=== PATIENT | female | born 1995 | race Caucasian/White ===

== ENCOUNTER 2017-06-13 14:06 | Emergency (ER) | payer BC ==
[2017-06-13 14:14] VITALS: RESP 18
[2017-06-13] MEDS ORDERED: HYDROmorphONE/DILAUDID 1 MG/ML INJ IVP ONE (14:53)
[2017-06-13] MEDS ORDERED: ONDANSETRON 4 MG/2 ML VIAL IVP ONE (14:53)
[2017-06-13] MEDS ORDERED: NS 1,000 ML IV ONE (14:53)
[2017-06-13 14:58] LABS: % IMMATURE GRANULYOCYTES 0.2 % (0.0-1.1); ABSOLUTE IMMATURE GRANULOCYTES 0.01 10^3/uL (0.00-0.10); ADD DIFF? NO; ADD MORPH? NO; ADD SCAN? NO; ATYPICAL LYMPHOCYTE FLAG 10 (0-99); FRAGMENT RBC FLAG 0 (0-99); HEMATOCRIT 40.4 % (38.0-47.0); HEMOGLOBIN 13.8 g/dL (12.6-16.3); LEFT SHIFT FLG 0 (0-99); LIPEMIA HEMOLYSIS FLAG 90 (0-99); MEAN CELL HEMOGLOBIN 29.6 pg (27.9-34.1); MEAN CELL HEMOGLOBIN CONCENTR. 34.2 g/dL (32.4-36.7); MEAN CELL VOLUME 86.7 fL (81.5-99.8); MEAN PLATELET VOLUME 10.9 fL (8.7-11.7); PLATELET CLUMPS FLAG 0 (0-99); PLATELET COUNT 285 10^3/uL (150-400); RED BLOOD CELL COUNT 4.66 10^6/uL (4.18-5.33); RED CELL DISTRIBUTION WIDTH 12.6 % (11.5-15.2)
--- NOTE | 2017-06-13 15:02 | EDPHY ---
H & P Smoking Status: Never smoked Time Seen by Provider: 06/13/17 14:17 HPI/ROS: CHIEF COMPLAINT: Abdominal pain HISTORY OF PRESENT ILLNESS: 22-year-old female presents to the emergency department with right lower quadrant abdominal pain. The patient states that over the last week she has had mild intermittent pain in her right lower quadrant which today became acutely worse. No vomiting. No diarrhea. No reported trauma. She had some lower back discomfort earlier in the week which has resolved. She had an outpatient ultrasound performed however did not know the results of this. She feels that the pain is much worse today. She denies chest pain or difficulty breathing. No fevers or chills. She is due to have her menstrual period 3 or 4 days. She has a ParaGard IUD. REVIEW OF SYSTEMS: Constitutional: No fever, no chills. Eyes: No double or blurry vision. ENT: No sore throat. Respiratory: No cough, no shortness of breath. Cardiac: No chest pain. Gastrointestinal: Abdominal pain as above. No vomiting or diarrhea. Genitourinary: No dysuria. Musculoskeletal: No neck or back pain. Skin: No rashes. Neurological: No headache. (Cara Sandsrina Leon) Past Medical/Surgical History: negative (ShavonMarissa Leon) Social History: [employer] student from [place] (Estefania Sandsa Leon) Physical Exam: General Appearance: Alert, [id number] distress. Afebrile. Eyes: Pupils equal and round. Extraocular motions are all intact. ENT: Mouth: Mucous membranes moist. Respiratory: No wheezing, rhonchi, or rales, lungs are clear to auscultation. Cardiovascular: Regular rate and rhythm. Gastrointestinal: Abdomen is soft. Tenderness with palpation in the right lower quadrant. No rebound, guarding or masses noted. No CVA tenderness bilaterally. Neurological: Alert and oriented x 3, cranial nerves II through XII grossly intact Skin: Warm and dry, no rashes. Musculoskeletal: Nontender to palpate along the cervical, thoracic or lumbar spine. Neck is supple. Extremities: Full range of motion and no peripheral edema. Psychiatric: Patient is oriented X 3, there is no agitation. (Cara Sandsrina Leon) Constitutional: Initial Vital Signs Temperature (C) 37.4 C 06/13/17 14:12 Heart Rate 94 06/13/17 14:12 Respiratory Rate 18 06/13/17 14:12 Blood Pressure 121/76 H 06/13/17 14:12 O2 Sat (%) 96 06/13/17 14:12 O2 Delivery Mode Room Air Allergies/Adverse Reactions: fluconazole [From Diflucan] Allergy (Unknown, Verified 03/30/15 17:40) ciprofloxacin [From Cipro] Allergy (Verified 06/13/17 14:13) metronidazole [From Flagyl] Allergy (Verified 09/04/16 22:45) pineapple Allergy (Verified 03/30/15 17:40) Home Medications: Medication Instructions Recorded Claritin 09/04/16 Lexapro 09/04/16 Medical Decision Making - Diagnostics Imaging: Discussed imaging studies w/ order desk caller Radiologist - Diagnostics Imaging Results: Imaging Impressions Abdomen Ultrasound 06/13/17 14:54 Impression: 1. Normal pelvic ultrasound. IUD in good position within the endometrial canal. 2. Normal appendix in the right lower quadrant. Findings discussed with Marissa Sands PA-C at 16:59 hour, 06/13/2017. Pelvic/Renal Ultrasound 06/13/17 14:54 Impression: 1. Normal pelvic ultrasound. IUD in good position within the endometrial canal. 2. Normal appendix in the right lower quadrant. Findings discussed with Marissa Sands PA-C at 16:59 hour, 06/13/2017. ED Course/Re-evaluation: 22-year-old female presents to the emergency department with abdominal pain. Laboratory studies reveal normal white blood cell count and chemistries. Urinalysis is unremarkable. Pelvic ultrasound reveals no evidence of ovarian torsion. She had her IUD which was displaced and stuck in the myometrium on the right side. Her appendix was well visualized and normal. I spoke with Dr. Elizabeth Ruiz who came to evaluate the patient as well and removed the patient's IUD. The patient felt much better. She was given 15 mg of IV Toradol. She is comfortable being discharged home. Dr. Elizabeth Ruiz recommended obtaining dirty urine to test for gonorrhea and chlamydia. This has been ordered and is pending. Patient feels comfortable being discharged home. (Marissa Sands) Differential Diagnosis: The patient was evaluated and managed by the physician's speech pathologist assistant. My cosignature indicates that I reviewed the chart and I agree with the findings and plan of care as documented. I am the secondary supervising physician. ( Lilli Escobar) Including but not limited to ovarian cyst, ovarian torsion, acute appendicitis, urinary tract infection, pyelonephritis, ectopic (Marissa Sands) - Data Points Laboratory Results: Laboratory Results 06/13/17 14:17 06/13/17 14:17 06/13/17 06/13/17 06/13/17 18:43 16:16 14:17 WBC RBC Hgb Hct MCV MCH MCHC RDW Plt Count MPV Neut % (Auto) Lymph % (Auto) [place] % (Auto) Eos % (Auto) Baso % (Auto) Nucleat RBC Rel Count Absolute Neuts (auto) Absolute Lymphs (auto) Absolute Monos (auto) Absolute Eos (auto) Absolute Basos (auto) Absolute Nucleated RBC Immature Gran % Immature Gran # Sodium Potassium Chloride Carbon Dioxide Anion Gap BUN Creatinine Estimated GFR Glucose Calcium Beta HCG, Qual NEGATIVE Urine Color PALE YELLOW Urine Appearance CLEAR Urine pH 5.0 (5.0-7.5) Ur Specific [place] 1.009 (1.002-1.030) Urine Protein NEGATIVE (NEGATIVE) Urine Ketones NEGATIVE (NEGATIVE) Urine Blood 1+ H (NEGATIVE) Urine Nitrate NEGATIVE (NEGATIVE) Urine Bilirubin NEGATIVE (NEGATIVE) Urine Urobilinogen NEGATIVE EU EU (0.2-1.0) Ur Leukocyte Esterase NEGATIVE (NEGATIVE) Urine RBC 1-3 /hpf /hpf (0-3) Urine WBC 1-3 /hpf /hpf (0-3) Ur Epithelial Cells TRACE /lpf /lpf (NONE-1+) Urine Mucus TRACE /lpf /lpf (NONE-1+) Urine Glucose NEGATIVE (NEGATIVE) C.trachomatis RNA (TMA) Pending N.gonorrhoeae RNA (TMA) Pending 06/13/17 06/13/17 14:17 14:17 WBC 5.97 10^3/uL 10^3/uL (3.80-9.50) RBC 4.66 10^6/uL 10^6/uL (4.18-5.33) Hgb 13.8 g/dL g/dL (12.6-16.3) Hct 40.4 % % (38.0-47.0) MCV 86.7 fL fL (81.5-99.8) MCH 29.6 pg pg (27.9-34.1) MCHC 34.2 g/dL g/dL (32.4-36.7) RDW 12.6 % % (11.5-15.2) Plt Count 285 10^3/uL 10^3/uL (150-400) MPV 10.9 fL fL (8.7-11.7) Neut % (Auto) 58.0 % % (39.3-74.2) Lymph % (Auto) 32.0 % % (15.0-45.0) [place] % (Auto) 8.0 % % (4.5-13.0) Eos % (Auto) 1.3 % % (0.6-7.6) Baso % (Auto) 0.5 % % (0.3-1.7) Nucleat RBC Rel Count 0.0 % % (0.0-0.2) Absolute Neuts (auto) 3.46 10^3/uL 10^3/uL (1.70-6.50) Absolute Lymphs (auto) 1.91 10^3/uL 10^3/uL (1.00-3.00) Absolute Monos (auto) 0.48 10^3/uL 10^3/uL (0.30-0.80) Absolute Eos (auto) 0.08 10^3/uL 10^3/uL (0.03-0.40) Absolute Basos (auto) 0.03 10^3/uL 10^3/uL (0.02-0.10) Absolute Nucleated RBC 0.00 10^3/uL 10^3/uL (0-0.01) Immature Gran % 0.2 % % (0.0-1.1) Immature Gran # 0.01 10^3/uL 10^3/uL (0.00-0.10) Sodium 137 mEq/L mEq/L (134-144) Potassium 4.3 mEq/L mEq/L (3.5-5.2) Chloride 105 mEq/L mEq/L (97-110) Carbon Dioxide 22 mEq/l mEq/l (22-31) Anion Gap 10 mEq/L mEq/L (8-16) BUN 14 mg/dL mg/dL (7-23) Creatinine 0.9 mg/dL mg/dL (0.6-1.0) Estimated GFR > 60 Glucose 74 mg/dL mg/dL (70-100) Calcium 9.7 mg/dL mg/dL (8.5-10.4) Beta HCG, Qual Urine Color Urine Appearance Urine pH Ur Specific [place] Urine Protein Urine Ketones Urine Blood Urine Nitrate Urine Bilirubin Urine Urobilinogen Ur Leukocyte Esterase Urine RBC Urine WBC Ur Epithelial Cells Urine Mucus Urine Glucose C.trachomatis RNA (TMA) N.gonorrhoeae RNA (TMA) Medications Given: Discontinued Medications Diphenhydramine HCl (Benadryl Injection) 50 mg IVP EDNOW ONE Stop: 06/13/17 15:10 Last Admin: 06/13/17 15:18 Dose: 50 mg Fentanyl (Sublimaze) 50 mcg IVP EDNOW ONE Stop: 06/13/17 16:33 Last Admin: 06/13/17 17:06 Dose: 50 mcg Hydromorphone HCl (Dilaudid) 0.5 mg IVP EDNOW ONE Stop: 06/13/17 14:54 Last Admin: 06/13/17 15:02 Dose: 0.5 mg Sodium Chloride (Ns) 1,000 mls @ 0 mls/hr IV EDNOW ONE; Wide Open PRN Reason: Protocol Stop: 06/13/17 14:54 Last Admin: 06/13/17 15:02 Dose: 1,000 mls Ketorolac Tromethamine (Toradol) 15 mg IVP EDNOW ONE Stop: 06/13/17 17:51 Last Admin: 06/13/17 17:57 Dose: 15 mg Ondansetron HCl (Zofran) 4 mg IVP EDNOW ONE Stop: 06/13/17 14:54 Last Admin: 06/13/17 15:02 Dose: 4 mg Ranitidine HCl (Zantac) 50 mg IVP EDNOW ONE Stop: 06/13/17 15:11 Last Admin: 06/13/17 15:18 Dose: 50 mg Departure - Departure Disposition: Home, Routine, Self-Care Clinical Impression: IUD migration Qualifiers: Encounter type: initial encounter Qualified Code(s): T83.89XA - Other specified complication of genitourinary prosthetic devices, implants and grafts , initial encounter Abdominal pain Qualifiers: Abdominal location: right lower quadrant Qualified Code(s): R10.31 - Right lower quadrant pain Condition: Good Instructions: Acute Abdominal Pain (ED) Additional Instructions: Abdominal Pain: Return to the Emergency Department immediately for increasing pain, fever, vomiting, or if not completely better in 8-12 hours. Call [phone] for the results of your gonorrhea and chlamydia cultures. Referrals: KEZIA Jessica,. [Primary Care Provider] - As per Instructions Elizabeth Ruiz MD [Medical Doctor] - 5-7 days, call for appt. (QM CONSULTANT lead quality control technician )
[2017-06-13 15:05] LABS: ANION GAP 10 mEq/L (8-16); CALCIUM 9.7 mg/dL (8.5-10.4); CARBON DIOXIDE 22 mEq/l (22-31); CHLORIDE 105 mEq/L (97-110); CREATININE 0.9 mg/dL (0.6-1.0); GLOMERULAR FILTRATION RATE > 60; GLUCOSE 74 mg/dL (70-100); POTASSIUM 4.3 mEq/L (3.5-5.2); SODIUM 137 mEq/L (134-144)
[2017-06-13] MEDS ORDERED: RANITIDINE 50 MG/2 ML VIAL IVP ONE (15:10)
--- NOTE | 2017-06-13 15:19 | CPEKG ---
Heart Rate: 64 RR Interval: 938 P-R Interval: 160 QRSD Interval: 66 QT Interval: 360 QTC Interval: 372 P [place]: 46 QRS [place]: 68 T Wave [place]: 34 EKG Severity - NORMAL ECG - EKG Impression: SINUS RHYTHM Electronically Signed By: Lilli Escobar 13-Jun-2017 20:01:11
[2017-06-13] MEDS ORDERED: fentaNYL 100 MCG/2 ML INJ IVP ONE (16:32)
[2017-06-13 16:40] LABS: COLOR PALE YELLOW; LEUKOCYTE ESTERASE,URINE NEGATIVE (NEGATIVE); NITRITE,URINE NEGATIVE (NEGATIVE)
[2017-06-13 16:41] LABS: MUCUS TRACE /lpf (NONE-1+)
[2017-06-13] MEDS ORDERED: KETOROLAC 30 MG/1 ML SDV IVP ONE (17:50)
--- NOTE | 2017-06-13 18:21 | GCON ---
[f rep st] CONSULTATION EMERGENCY ROOM CONSULTATION DATE OF CONSULTATION: 06/13/2017 Presentation diagnosis is abdominal and pelvic pain. HISTORY OF PRESENT ILLNESS: The patient is a 22-year-old, 0, who presents with acute onset of worsening right lower quadrant pain. 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 She reports that she did have increasing pain that was mild and intermittent in the right lower quadrant over the last week that would wax and wane and have varying severity. Over the course of her life, she has had pain similar to this. Today she became much worse, stabbing, sharp pain. No nausea, vomiting, diarrhea. No fever, chills. No other significant symptoms. She is due to have her menstrual period in the next few days, and she has a Paragard IUD that was placed 6 months ago. Upon evaluation in the Emergency Department, she had a pelvic ultrasound. The pelvic ultrasound revealed a uterus that was dorsiflexed, and the left arm of the IUD was appeared to penetrate the myometrium of the uterus, and that seemed to be the location corresponding to the worst part of the patient's pain. Her ovaries were normal. No abnormal cysts. She also had a right lower quadrant ultrasound performed that showed a normal appendix, and she had no point tenderness over her appendix. She had normal ovaries. No other abnormalities in the uterus. pulmonary embolus. Vital signs are stable. The rest of her labs were stable, including normal white count, normal electrolytes, and a negative test. Therefore, I was consulted to remove the IUD as it was penetrating the myometrium, and this is the most likely cause of her pain. REVIEW OF SYSTEMS: Negative as per HPI. PAST MEDICAL HISTORY: She has no significant past medical or surgical history. SOCIAL HISTORY: She is a student at the [employer]. She denies smoking. Social alcohol. No drug use. She is in a monogamous relationship with her boyfriend, and neither have had other partners. ALLERGIES: She reports allergies to fluconazole, Cipro, metronidazole, and pineapple. MEDICATIONS: Claritin and Lexapro. FAMILY HISTORY: Noncontributory. HOSPITAL COURSE: I came to analyze the patient for removal of an IUD. PHYSICAL EXAMINATION: VITAL SIGNS: Stable. GENERAL: She is a well-developed , well-nourished white female, in no acute distress. LUNGS: Clear to auscultation bilaterally. HEART: Regular rate and rhythm. No murmur. ABDOMEN : Soft, nondistended. Normal bowel sounds. Mild tenderness in lower quadrants. No rebound or guarding. PELVIC: Normal cervix. ParaGard strings were easily visualized. These were grasped, and the IUD was removed without difficulty. Further pelvic exam, no cervical motion tenderness. Uterus is midline. No fundal tenderness. Midline retroverted. No adnexal masses. ASSESSMENT AND PLAN: A 22-year-old, G0 with acute onset of right lower quadrant pain, likely from an IUD penetrating into the myometrium. This was removed. I instructed patient to use condoms for contraception. Follow up in my office in the next few weeks. We can do an ultrasound as a baseline to assess her uterine anatomy, and evaluate her for another IUD if she desires with ultrasound guidance at a later time or alternative contraceptive measures. We will send a gonorrhea and chlamydia urine to confirm no infection. /[id number]/MODL MTDD
[2017-06-13 18:42] VITALS: BP 114/70; PULSE 79; TEMP 99.5; O2SAT 98
[2017-06-13] MEDS ORDERED: RANITIDINE 50 MG/2 ML VIAL ONE (19:42)
[2017-06-15 13:16] LABS: CHLAMYDIA AMPLIFICATION GENPRB NEGATIVE (NEGATIVE)
== END 2017-06-13 18:42 | disposition home or self-care (01) ==
LOC: EDUNIT#
DX: T83.89XA Other specified complication of genitourinary prosthetic devices, implants and grafts, initial encounter (principal); E86.9 Volume depletion, unspecified; Y82.8 Other medical devices associated with adverse incidents
CPT/HCPCS: 96374; J1170; J1200; J1885; J2405; J2780; J3010

== ENCOUNTER 2017-07-03 18:25 | Emergency (ER) | payer BC ==
[2017-07-03 18:57] VITALS: BP 106/75; PULSE 66; RESP 18; TEMP 98.9; O2SAT 99
[2017-07-03] MEDS ORDERED: IBUPROFEN 600 MG TAB PO ONE (19:15)
--- NOTE | 2017-07-03 19:31 | EDPHY ---
H & P Stated Complaint: Hit head with flag. Possible laceration. HPI/ROS: CHIEF COMPLAINT: Head injury HISTORY OF PRESENT ILLNESS: Patient reports a head injury at 5:15 p.m. today. She says she was twirling a flag when she was struck on the top of the head. No loss of consciousness. She did sustain a laceration and "lots of blood." She complains of a headache. She has no neck pain or stiffness. No dental pain. No facial pain. No bruising around the eyes. No nausea or vomiting. No changes in vision. Symptoms [id number] but constant. No other associated complaints or modifying factors. REVIEW OF SYSTEMS: Ten systems reviewed and are negative unless otherwise noted in the HPI PCP: [facility] SPECIALISTS: None PAST MEDICAL HISTORY: Anxiety, PTSD PAST SURGICAL HISTORY: Labral repair March 2016 SOCIAL HISTORY: Nonsmoker. Occasional alcohol. No illicit substance use. Currently a student at [employer]. FAMILY HISTORY: Noncontributory EXAMINATION General Appearance: Alert, no distress Head: normocephalic, superficial laceration less than 1 cm top of the scalp in the 1st part of the hairline. No bleeding. No foreign body. There is less than 1 mm distraction of the wound borders. No Jones sign. No raccoon eyes. Eyes: Pupils equal and round, no conjunctival pallor or injection ENT, Mouth: No hemotympanum. Mucous membranes moist. Airway widely patent Neck: Normal inspection, supple, non-tender. Painless range of motion all planes. No meningismus or rigidity Respiratory: Lungs are clear to auscultation no wheezing rhonchi Cardiovascular: Regular rate and rhythm. No murmur. Gastrointestinal: Abdomen is soft and nontender Back: non-tender, no bony abnormalities Neurological: GCS 15. A&O, nonfocal, normal gait. Strength symmetric in all 4 limbs. No pronator drift. No dysmetria. Normal mental status Skin: Warm and dry, no rash. Scalp lacerations noted. No petechiae or purpura. No ecchymosis Extremities: Nontender, no pedal edema Psychiatric: Mood and affect normal DIFFERENTIAL DIAGNOSES: Including but not limited to closed head injury, scalp laceration, contusion, hematoma, intracranial hemorrhage, skull fracture MDM: 7:25 p.m. Blunt trauma to the top of the scalp by a flag pole. She has no loss of consciousness. She has no nausea or vomiting. She has no visual change. She does have a headache but is tolerable. There is no indication for CT scan of the head by [place] CT head rules. She is awake alert no acute distress. Neuro exam is normal. We discussed discharge home with symptomatic medications. We discussed monitoring for any changes in her symptoms that would warrant return to the emergency department. She is comfortable with this plan and discharged home stable condition. Recommend follow up on campus at [facility] for return to [facility] - Personal History LMP (Females 10-55): 1-7 Days Ago Current Tetanus/Diphtheria Vaccine: Yes Current Tetanus Diphtheria and Acellular Pertussis (TDAP): Yes - Medical/Surgical History Hx Asthma: No Hx Chronic Respiratory Disease: No Hx Diabetes: No Hx Cardiac Disease: No Hx Renal Disease: No Hx Cirrhosis: No Hx Alcoholism: No Hx HIV/AIDS: No Hx Splenectomy or Spleen Trauma: No Other PMH: anxiety, R shoulder surg - Social History Smoking Status: Never smoked Constitutional: Initial Vital Signs Temperature (C) 98.9 F 07/03/17 18:54 Heart Rate 66 07/03/17 18:54 Respiratory Rate 18 07/03/17 18:54 Blood Pressure 106/75 07/03/17 18:54 O2 Sat (%) 99 07/03/17 18:54 O2 Delivery Mode Room Air Allergies/Adverse Reactions: fluconazole [From Diflucan] Allergy (Unknown, Verified 03/30/15 17:40) ciprofloxacin [From Cipro] Allergy (Verified 06/13/17 14:13) metronidazole [From Flagyl] Allergy (Verified 09/04/16 22:45) pineapple Allergy (Verified 03/30/15 17:40) Home Medications: Medication Instructions Recorded Claritin 09/04/16 Lexapro 09/04/16 Medical Decision Making - Data Points Medications Given: Discontinued Medications Ibuprofen (Motrin) 600 mg PO EDNOW ONE Stop: 07/03/17 19:16 Last Admin: 07/03/17 19:20 Dose: 600 mg Departure - Departure Disposition: Home, Routine, Self-Care Clinical Impression: Blunt head trauma Qualifiers: Encounter type: initial encounter Qualified Code(s): S09.8XXA - Other specified injuries of head, initial encounter Closed head injury Qualifiers: Encounter type: initial encounter Qualified Code(s): S09.90XA - Unspecified injury of head, initial encounter Condition: Good Instructions: Concussion (ED), Head Injury (ED) Additional Instructions: 1. Bacitracin topically once daily for 2 days 2. Head injury precautions as discussed 3. Contact manager case management on Thursday to discuss paperwork for your [employer] clearance. [phone] 4. Ibuprofen 600 mg every 8 hours as needed Referrals: NONE *PRIMARY CARE P,. [Primary Care Provider] - As per Instructions [facility] [Clinic] - As per Instructions Rekha Cross MD [Medical Doctor] - As per Instructions Stand Alone Forms: Statement of Treatment
== END 2017-07-03 19:48 | disposition home or self-care (01) ==
DX: S09.8XXA Other specified injuries of head, initial encounter (principal); W22.09XA Striking against other stationary object, initial encounter; Y93.89 Activity, other specified

== ENCOUNTER 2019-01-18 16:50 | Observation (INO) | payer BC ==
--- NOTE | 2019-01-18 17:40 | EDPHY ---
H & P Time Seen by Provider: 01/18/19 17:39 HPI/ROS: CHIEF COMPLAINT: Abdominal pain cramping and diarrhea HISTORY OF PRESENT ILLNESS: Feeling well until this last weekend when she just felt more tired than usual. Started having severe watery diarrhea 2 days ago on Thursday and felt dehydrated. She was seen at [facility] on Thursday and got a L of IV fluids and felt lightheaded and had an episode of syncope there. She was seen today and diagnosed with Cryptosporidium by a stool sample , started on Alinia, and given another L of IV fluid. Presents now with abdominal cramping dizziness feeling lightheaded. Moderate to severe, not associated with vomiting but she does have nausea. REVIEW OF SYSTEMS: Eye: no change in vision ENT: no sore throat Cardiac: no chest pain or syncope Pulmonary: no cough or SOB Abdomen: HPI Musculoskeletal: no back pain Skin: no rash Neuro: no headache Constitutional: no fever : no urinary symptoms A comprehensive 10 point review of systems is otherwise negative aside from elements mentioned in the history of present illness. PAST MEDICAL HISTORY: Anxiety and right shoulder surgery Social history: No recent foreign travel General Appearance: Alert and conversant, cooperative. Eyes: No scleral icterus. ENT, Mouth: Dry mucous membranes. Respiratory: Normal respiratory effort, breath sounds equal, lungs are clear to auscultation. Cardiovascular: Regular rate and rhythm. Gastrointestinal: Mild right upper quadrant tenderness, bowel sounds present, no rebound or guarding. No McBurney's point tenderness. Neurological: Alert, face symmetric, normal motor and sensory in extremities. Skin: Warm and dry, no rashes. Musculoskeletal: No peripheral edema. Psychiatric: Not agitated. Emergency Department course/MDM: IV normal saline hydration, CBC chemistry LFT lipase and test. 2026: Still symptomatic, 2nd dose IV fentanyl, was seen by pharmacy in the emergency department, likely a side effect of her Alinia. Discussed with Dr. Cohn hospitalist service will admit for symptomatic treatment. Discussed with the patient who is in agreement. Smoking Status: Never smoked Constitutional: Initial Vital Signs Temperature (C) 37 C 01/18/19 17:12 Heart Rate 74 01/18/19 17:12 Respiratory Rate 17 01/18/19 17:12 Blood Pressure 95/63 L 01/18/19 17:12 O2 Sat (%) 98 01/18/19 17:12 O2 Delivery Mode Room Air Allergies/Adverse Reactions: fluconazole [From Diflucan] Allergy (Unknown, Verified 01/18/19 17:11) ciprofloxacin [From Cipro] Allergy (Verified 01/18/19 17:11) metronidazole [From Flagyl] Allergy (Verified 01/18/19 17:11) pineapple Allergy (Verified 01/18/19 17:11) Home Medications: Medication Instructions Recorded Escitalopram Oxalate [Lexapro] 30 mg PO DAILY 09/04/16 Cyanocobalamin [Vitamin B12 1,000 mcg IM Q28D 01/18/19 1000MCG/ML (*)] Etonogestrel/Ethinyl Estradiol 1 each VG Q21D 01/18/19 [Nuvaring Vaginal Ring (RX)] Nitazoxanide [Alinia] 500 mg PO Q12 01/18/19 Ondansetron HCl [Ondansetron HCl] 4 mg PO Q6HRS PRN 01/18/19 traZODone [traZODONE 50MG (*)] 50 mg PO HS 01/18/19 Medical Decision Making - Data Points Laboratory Results: Laboratory Results 01/18/19 17:53 01/18/19 17:53 01/18/19 01/18/19 01/18/19 17:57 17:53 17:53 WBC RBC Hgb POC Hgb 11.6 gm/dL L gm/dL (12.6-16.3) Hct POC Hct 34 % L % (38-47) MCV MCH MCHC RDW Plt Count MPV Neut % (Auto) Lymph % (Auto) [place] % (Auto) Eos % (Auto) Baso % (Auto) Nucleat RBC Rel Count Absolute Neuts (auto) Absolute Lymphs (auto) Absolute Monos (auto) Absolute Eos (auto) Absolute Basos (auto) Absolute Nucleated RBC Immature Gran % Seg Neutrophils % Band Neutrophils % Lymphocytes % Monocytes % Eosinophils % Basophils % Metamyelocytes % Myelocytes % Promyelocytes % Blast Cells % Immature Gran # Absolute Seg Neuts Absolute Band Neuts Absolute Lymphocytes Absolute Monocytes Absolute Eosinophils Absolute Basophils Absolute Metamyelocyte Absolute Myelocytes Absolute Promyelocytes Absolute Plasma Cells Nucleated RBCs Atypical Lymphocytes Absolute Blast Cells Plasma Cells % Platelet Estimate Microcytic Cells POC Sodium 143 mEq/L mEq/L (135-145) Sodium 137 mEq/L mEq/L (135-145) POC Potassium 3.4 mEq/L mEq/L (3.3-5.0) Potassium 3.6 mEq/L mEq/L (3.5-5.2) POC Chloride 107 mEq/L mEq/L (97-110) Chloride 107 mEq/L mEq/L (97-110) Carbon Dioxide 23 mEq/l mEq/l (22-31) POC Total CO2 21 mEq/L L mEq/L (22-31) Anion Gap 7 mEq/L mEq/L (6-14) POC BUN 4 mg/dL L mg/dL (7-23) BUN 7 mg/dL mg/dL (7-23) Creatinine 0.8 mg/dL mg/dL (0.6-1.0) POC Creatinine 0.8 mg/dL mg/dL (0.6-1.0) Estimated GFR > 60 Glucose 87 mg/dL mg/dL (70-100) POC Glucose 91 mg/dL mg/dL (70-100) Calcium 8.1 mg/dL L mg/dL (8.5-10.4) Total Bilirubin 0.3 mg/dL mg/dL (0.1-1.4) Conjugated Bilirubin 0.3 mg/dL mg/dL (0.0-0.5) Unconjugated Bilirubin 0.0 mg/dL mg/dL (0.0-1.1) AST 20 IU/L IU/L (14-46) ALT 28 IU/L IU/L (9-52) Alkaline Phosphatase 32 IU/L L IU/L (38-126) Total Protein 5.8 g/dL L g/dL (6.3-8.2) Albumin 3.4 g/dL L g/dL (3.5-5.0) Lipase 88 IU/L IU/L (23-300) Beta HCG, Qual NEGATIVE 01/18/19 17:53 WBC 2.68 10^3/uL L 10^3/uL (3.80-9.50) RBC 4.16 10^6/uL L 10^6/uL (4.18-5.33) Hgb 12.2 g/dL L g/dL (12.6-16.3) POC Hgb Hct 35.6 % L % (38.0-47.0) POC Hct MCV 85.6 fL fL (81.5-99.8) MCH 29.3 pg pg (27.9-34.1) MCHC 34.3 g/dL g/dL (32.4-36.7) RDW 12.3 % % (11.5-15.2) Plt Count 213 10^3/uL 10^3/uL (150-400) MPV 11.0 fL fL (8.7-11.7) Neut % (Auto) Not Reported Lymph % (Auto) Not Reported [place] % (Auto) Not Reported Eos % (Auto) Not Reported Baso % (Auto) Not Reported Nucleat RBC Rel Count Not Reported Absolute Neuts (auto) Not Reported Absolute Lymphs (auto) Not Reported Absolute Monos (auto) Not Reported Absolute Eos (auto) Not Reported Absolute Basos (auto) Not Reported Absolute Nucleated RBC Not Reported Immature Gran % Not Reported Seg Neutrophils % 17.8 % % Band Neutrophils % 7.9 % % Lymphocytes % 62.4 % % Monocytes % 8.9 % % Eosinophils % 3.0 % % Basophils % 0.0 % % Metamyelocytes % 0.0 % % Myelocytes % 0.0 % % Promyelocytes % 0.0 % % Blast Cells % 0.0 % % Immature Gran # Not Reported Absolute Seg Neuts 0.48 10^3/uL L 10^3/uL (1.70-6.50) Absolute Band Neuts 0.21 10^3/uL 10^3/uL (0.00-0.70) Absolute Lymphocytes 1.67 10^3/uL 10^3/uL (1.00-3.00) Absolute Monocytes 0.24 10^3/uL L 10^3/uL (0.30-0.80) Absolute Eosinophils 0.08 10^3/uL 10^3/uL (0.03-0.40) Absolute Basophils 0.00 10^3/uL L 10^3/uL (0.02-0.10) Absolute Metamyelocyte 0.00 10^3/mL 10^3/mL (0.00-0.00) Absolute Myelocytes 0.00 10^3/mL 10^3/mL (0.00-0.00) Absolute Promyelocytes 0.00 10^3/uL 10^3/uL (0.00-0.00) Absolute Plasma Cells 0.00 10^3/uL 10^3/uL (0.00-0.00) Nucleated RBCs 0 /100 WBC /100 WBC (0-0) Atypical Lymphocytes 1+ H Absolute Blast Cells 0.00 10^3/uL 10^3/uL (0.00-0.00) Plasma Cells % 0.0 % % Platelet Estimate ADEQUATE (ADEQ) Microcytic Cells 1+ H POC Sodium Sodium POC Potassium Potassium POC Chloride Chloride Carbon Dioxide POC Total CO2 Anion Gap POC BUN BUN Creatinine POC Creatinine Estimated GFR Glucose POC Glucose Calcium Total Bilirubin Conjugated Bilirubin Unconjugated Bilirubin AST ALT Alkaline Phosphatase Total Protein Albumin Lipase Beta HCG, Qual Medications Given: Discontinued Medications Dicyclomine HCl (Bentyl) 20 mg PO EDNOW ONE Stop: 01/18/19 19:19 Last Admin: 01/18/19 19:24 Dose: 20 mg Fentanyl (Sublimaze) 50 mcg IVP EDNOW ONE Stop: 01/18/19 18:18 Last Admin: 01/18/19 18:22 Dose: 50 mcg Fentanyl (Sublimaze) 50 mcg IVP EDNOW ONE Stop: 01/18/19 20:28 Last Admin: 01/18/19 20:30 Dose: 50 mcg Sodium Chloride (Ns) 1,000 mls @ 0 mls/hr IV EDNOW ONE; Wide Open PRN Reason: Protocol Stop: 01/18/19 18:00 Last Admin: 01/18/19 18:16 Dose: 1,000 mls Sodium Chloride (Ns) 1,000 mls @ 0 mls/hr IV EDNOW ONE; Wide Open PRN Reason: Protocol Stop: 01/18/19 19:02 Last Admin: 01/18/19 19:07 Dose: 1,000 mls Lorazepam (Ativan Injection) 0.5 mg IVP EDNOW ONE Stop: 01/18/19 21:09 Last Admin: 01/18/19 21:12 Dose: 0.5 mg Point of Care Test Results: Chemistry 01/18/19 17:57 POC Sodium 143 mEq/L mEq/L (135-145) POC Potassium 3.4 mEq/L mEq/L (3.3-5.0) POC Chloride 107 mEq/L mEq/L (97-110) POC Total CO2 21 mEq/L L mEq/L (22-31) POC BUN 4 mg/dL L mg/dL (7-23) POC Creatinine 0.8 mg/dL mg/dL (0.6-1.0) POC Glucose 91 mg/dL mg/dL (70-100) ISTAT H&H 01/18/19 17:57 POC Hgb 11.6 gm/dL L gm/dL (12.6-16.3) POC Hct 34 % L % (38-47) Departure - Departure Disposition: [facility] Inpatient Acute Clinical Impression: Diarrhea due to cryptosporidium Abdominal pain Qualifiers: Abdominal location: generalized Qualified Code(s): R10.84 - Generalized abdominal pain Condition: Good
[2019-01-18] MEDS ORDERED: NS 1,000 ML IV ONE ×2 (17:59→19:01)
[2019-01-18 18:11] LABS: PLATELET COUNT 213 10^3/uL (150-400)
[2019-01-18] MEDS ORDERED: fentaNYL 100 MCG/2 ML INJ IVP ONE ×2 (18:17→20:27)
[2019-01-18] MEDS ORDERED: DICYCLOMINE 10 MG CAP PO ONE (19:18)
[2019-01-18] MEDS ORDERED: fentaNYL 100 MCG/2 ML INJ ONE (20:28)
[2019-01-18] MEDS ORDERED: ACETAMINOPHEN 325 MG TAB PO PRN (21:05)
[2019-01-18] MEDS ORDERED: ONDANSETRON 4 MG/2 ML VIAL IVP PRN (21:05)
[2019-01-18] MEDS ORDERED: LORazepam 2 MG/ML INJ IVP ONE (21:08)
--- NOTE | 2019-01-18 21:59 | PDGENHP ---
<Lucita Salinas - Last Filed: 01/18/19 22:17> History and Physical - Chief Complaint Abdominal cramping, diarrhea, nausea - History of Present Illness This is a 23-year-old female who is relatively healthy came into the emergency room after experiencing Cryptosporidium and prescribed Alinia today at [facility]. She reports having watery diarrhea on Thursday and felt extremely dehydrated; she was seen at the [facility] yesterday and received a L of IV fluids and at the same time felt lightheaded and had an episode of syncope while there. She went back to [facility] today where a stool sample was performed and found to have Crytosporidium and also received another L of IV fluid. She reported taking a dose of Alinia today and feels like her abdominal cramping is quite painful, and continues to feel very lightheaded and dehydrated. She denies any recent travel. She is being admitted for further workup, treatment and monitoring. History Information - Allergies/Home Medication List Allergies/Adverse Reactions: fluconazole [From Diflucan] Allergy (Unknown, Verified 01/18/19 17:11) ciprofloxacin [From Cipro] Allergy (Verified 01/18/19 17:11) metronidazole [From Flagyl] Allergy (Verified 01/18/19 17:11) pineapple Allergy (Verified 01/18/19 17:11) Home Medications: Escitalopram Oxalate [Lexapro] 30 mg PO HS 09/04/16 [Last Taken 01/17/19] Cyanocobalamin [Vitamin B12 1000MCG/ML (*)] 1,000 mcg IM Q28D 01/18/19 [Last Taken 01/03/19] Etonogestrel/Ethinyl Estradiol [Nuvaring Vaginal Ring (RX)] 1 each VG Q21D 01/18 [Last Taken Unknown] Nitazoxanide [Alinia] 500 mg PO Q12 01/18/19 [Last Taken 01/18/19 10:00] Ondansetron HCl [Ondansetron HCl] 4 mg PO Q6HRS PRN 01/18/19 [Last Taken Unknown ] traZODone [traZODONE 50MG (*)] 50 mg PO HS 01/18/19 [Last Taken Unknown] I have personally reviewed and updated: family history, medical history, social history, surgical history - Past Medical History Additional medical history: Anxiety, ovarian cyst, right shoulder surgery - Surgical History Reports: no pertinent surgical hx - Family History Positive for: non-pertinent - Social History Smoking Status: Never smoked Alcohol Use: Occasionally Drug Use: Marijuana Additional social history: She goes to [employer] as a student; she is majoring in anthropology and environmental science; she is graduating this february Review of Systems Review of Systems: ROS: 10pt was reviewed & negative except for what was stated in HPI & below Physical Exam Physical Exam: Lab data and imaging reviewed. White blood count: 2.68 Hemoglobin and hematocrit: 12.2 and 35.6 Platelet count: 213 Sodium:137 Potassium: 3.6 Chloride: 107 Carbon dioxide: 23 BUN/Cr: 7/0.8 Temp Pulse Resp BP Pulse Ox 36.8 C 74 16 116/72 94 01/18/19 21:36 01/18/19 21:36 01/18/19 21:36 01/18/19 21:36 01/18/19 21:36 Constitutional: uncomfortable Eyes: PERRL, anicteric sclera, EOMI Ears, Nose, Mouth, Throat: hearing normal, ears appear normal, no oral mucosal ulcers, dry mucous membranes Cardiovascular: regular rate and rhythym, no murmur, rub, or gallop, No edema Peripheral Pulses: 2+: dorsalis-pedis (R), dorsalis-pedis (L) Respiratory: no respiratory distress, no rales or rhonchi, clear to auscultation Gastrointestinal: normoactive bowel sounds, no palpable masses, tenderness Genitourinary: no bladder fullness, no bladder tenderness Skin: warm, normal color, no rashes or abrasions, no fluctuance, no induration, No mottled Musculoskeletal: full muscle strength, no muscle tenderness, normal joint ROM, no joint effusions Neurologic: AAOx3, sensation intact bilaterally, CN II-XII Intact Psychiatric: interacting appropriately, not anxious, not encephalopathic, thought process linear Lymph, Heme, Immunologic: no cervical LAD, no supraclavicular LAD Lab Data & Imaging Review 01/18/19 17:53 01/18/19 17:53 WBC 2.68 10^3/uL (3.80-9.50) L 01/18/19 17:53 RBC 4.16 10^6/uL (4.18-5.33) L 01/18/19 17:53 Hgb 12.2 g/dL (12.6-16.3) L 01/18/19 17:53 POC Hgb 11.6 gm/dL (12.6-16.3) L 01/18/19 17:57 Hct 35.6 % (38.0-47.0) L 01/18/19 17:53 POC Hct 34 % (38-47) L 01/18/19 17:57 MCV 85.6 fL (81.5-99.8) 01/18/19 17:53 MCH 29.3 pg (27.9-34.1) 01/18/19 17:53 MCHC 34.3 g/dL (32.4-36.7) 01/18/19 17:53 RDW 12.3 % (11.5-15.2) 01/18/19 17:53 Plt Count 213 10^3/uL (150-400) 01/18/19 17:53 MPV 11.0 fL (8.7-11.7) 01/18/19 17:53 Neut % (Auto) Not Reported 01/18/19 17:53 Lymph % (Auto) Not Reported 01/18/19 17:53 [place] % (Auto) Not Reported 01/18/19 17:53 Eos % (Auto) Not Reported 01/18/19 17:53 Baso % (Auto) Not Reported 01/18/19 17:53 Nucleat RBC Rel Count Not Reported 01/18/19 17:53 Absolute Neuts (auto) Not Reported 01/18/19 17:53 Absolute Lymphs (auto) Not Reported 01/18/19 17:53 Absolute Monos (auto) Not Reported 01/18/19 17:53 Absolute Eos (auto) Not Reported 01/18/19 17:53 Absolute Basos (auto) Not Reported 01/18/19 17:53 Absolute Nucleated RBC Not Reported 01/18/19 17:53 Immature Gran % Not Reported 01/18/19 17:53 Seg Neutrophils % 17.8 % 01/18/19 17:53 Band Neutrophils % 7.9 % 01/18/19 17:53 Lymphocytes % 62.4 % 01/18/19 17:53 Monocytes % 8.9 % 01/18/19 17:53 Eosinophils % 3.0 % 01/18/19 17:53 Basophils % 0.0 % 01/18/19 17:53 Metamyelocytes % 0.0 % 01/18/19 17:53 Myelocytes % 0.0 % 01/18/19 17:53 Promyelocytes % 0.0 % 01/18/19 17:53 Blast Cells % 0.0 % 01/18/19 17:53 Immature Gran # Not Reported 01/18/19 17:53 Absolute Seg Neuts 0.48 10^3/uL (1.70-6.50) L 01/18/19 17:53 Absolute Band Neuts 0.21 10^3/uL (0.00-0.70) 01/18/19 17:53 Absolute Lymphocytes 1.67 10^3/uL (1.00-3.00) 01/18/19 17:53 Absolute Monocytes 0.24 10^3/uL (0.30-0.80) L 01/18/19 17:53 Absolute Eosinophils 0.08 10^3/uL (0.03-0.40) 01/18/19 17:53 Absolute Basophils 0.00 10^3/uL (0.02-0.10) L 01/18/19 17:53 Absolute Metamyelocyte 0.00 10^3/mL (0.00-0.00) 01/18/19 17:53 Absolute Myelocytes 0.00 10^3/mL (0.00-0.00) 01/18/19 17:53 Absolute Promyelocytes 0.00 10^3/uL (0.00-0.00) 01/18/19 17:53 Absolute Plasma Cells 0.00 10^3/uL (0.00-0.00) 01/18/19 17:53 Nucleated RBCs 0 /100 WBC (0-0) 01/18/19 17:53 Atypical Lymphocytes 1+ H 01/18/19 17:53 Absolute Blast Cells 0.00 10^3/uL (0.00-0.00) 01/18/19 17:53 Plasma Cells % 0.0 % 01/18/19 17:53 Platelet Estimate ADEQUATE (ADEQ) 01/18/19 17:53 Microcytic Cells 1+ H 01/18/19 17:53 POC Sodium 143 mEq/L (135-145) 01/18/19 17:57 Sodium 137 mEq/L (135-145) 01/18/19 17:53 POC Potassium 3.4 mEq/L (3.3-5.0) 01/18/19 17:57 Potassium 3.6 mEq/L (3.5-5.2) 01/18/19 17:53 POC Chloride 107 mEq/L (97-110) 01/18/19 17:57 Chloride 107 mEq/L (97-110) 01/18/19 17:53 Carbon Dioxide 23 mEq/l (22-31) 01/18/19 17:53 POC Total CO2 21 mEq/L (22-31) L 01/18/19 17:57 Anion Gap 7 mEq/L (6-14) 01/18/19 17:53 POC BUN 4 mg/dL (7-23) L 01/18/19 17:57 BUN 7 mg/dL (7-23) 01/18/19 17:53 Creatinine 0.8 mg/dL (0.6-1.0) 01/18/19 17:53 POC Creatinine 0.8 mg/dL (0.6-1.0) 01/18/19 17:57 Estimated GFR > 60 01/18/19 17:53 Glucose 87 mg/dL (70-100) 01/18/19 17:53 POC Glucose 91 mg/dL (70-100) 01/18/19 17:57 Calcium 8.1 mg/dL (8.5-10.4) L 01/18/19 17:53 Total Bilirubin 0.3 mg/dL (0.1-1.4) 01/18/19 17:53 Conjugated Bilirubin 0.3 mg/dL (0.0-0.5) 01/18/19 17:53 Unconjugated Bilirubin 0.0 mg/dL (0.0-1.1) 01/18/19 17:53 AST 20 IU/L (14-46) 01/18/19 17:53 ALT 28 IU/L (9-52) 01/18/19 17:53 Alkaline Phosphatase 32 IU/L (38-126) L 01/18/19 17:53 Total Protein 5.8 g/dL (6.3-8.2) L 01/18/19 17:53 Albumin 3.4 g/dL (3.5-5.0) L 01/18/19 17:53 Lipase 88 IU/L (23-300) 01/18/19 17:53 Beta HCG, Qual NEGATIVE 01/18/19 17:53 Assessment & Plan Plan: 23 y/o female who was tested positive at [facility] today for cryptosporidium. Her vital signs are the following; blood pressure 118/72, heart rate 71, respirations 16, temperature 37.0 degrees, and oxygen saturation at 99% on room air. Abdominal pain (Acute) Diarrhea due to cryptosporidium (Acute) #Cryptosporidium: Do not have [facility] records indicating this and they are now closed so I am unable to request records. - GI panel PCR pending - Cont Alinia unless GI panel results w/something different -CBC/BMP in AM #Abdominal pain/nausea -Received Bentyl in ED; cont this QID -Anti-emetics #Dehydration -Received 2L NS in ED; cont IVF x 2 bags Diet: Regular Code: Full VTE ppx: Low risk Dispo: admit to obs <Erendira Cohn - Last Filed: 01/19/19 01:12> History and Physical - History of Present Illness Review of Systems Review of Systems: Physical Exam Physical Exam: Temp Pulse Resp BP Pulse Ox 37.2 C 73 16 123/64 H 96 01/18/19 22:17 01/18/19 22:17 01/18/19 22:17 01/18/19 22:17 01/18/19 22:17 Lab Data & Imaging Review 01/18/19 17:53 01/18/19 17:53 WBC 2.68 10^3/uL (3.80-9.50) L 01/18/19 17:53 RBC 4.16 10^6/uL (4.18-5.33) L 01/18/19 17:53 Hgb 12.2 g/dL (12.6-16.3) L 01/18/19 17:53 POC Hgb 11.6 gm/dL (12.6-16.3) L 01/18/19 17:57 Hct 35.6 % (38.0-47.0) L 01/18/19 17:53 POC Hct 34 % (38-47) L 01/18/19 17:57 MCV 85.6 fL (81.5-99.8) 01/18/19 17:53 MCH 29.3 pg (27.9-34.1) 01/18/19 17:53 MCHC 34.3 g/dL (32.4-36.7) 01/18/19 17:53 RDW 12.3 % (11.5-15.2) 01/18/19 17:53 Plt Count 213 10^3/uL (150-400) 01/18/19 17:53 MPV 11.0 fL (8.7-11.7) 01/18/19 17:53 Neut % (Auto) Not Reported 01/18/19 17:53 Lymph % (Auto) Not Reported 01/18/19 17:53 [place] % (Auto) Not Reported 01/18/19 17:53 Eos % (Auto) Not Reported 01/18/19 17:53 Baso % (Auto) Not Reported 01/18/19 17:53 Nucleat RBC Rel Count Not Reported 01/18/19 17:53 Absolute Neuts (auto) Not Reported 01/18/19 17:53 Absolute Lymphs (auto) Not Reported 01/18/19 17:53 Absolute Monos (auto) Not Reported 01/18/19 17:53 Absolute Eos (auto) Not Reported 01/18/19 17:53 Absolute Basos (auto) Not Reported 01/18/19 17:53 Absolute Nucleated RBC Not Reported 01/18/19 17:53 Immature Gran % Not Reported 01/18/19 17:53 Seg Neutrophils % 17.8 % 01/18/19 17:53 Band Neutrophils % 7.9 % 01/18/19 17:53 Lymphocytes % 62.4 % 01/18/19 17:53 Monocytes % 8.9 % 01/18/19 17:53 Eosinophils % 3.0 % 01/18/19 17:53 Basophils % 0.0 % 01/18/19 17:53 Metamyelocytes % 0.0 % 01/18/19 17:53 Myelocytes % 0.0 % 01/18/19 17:53 Promyelocytes % 0.0 % 01/18/19 17:53 Blast Cells % 0.0 % 01/18/19 17:53 Immature Gran # Not Reported 01/18/19 17:53 Absolute Seg Neuts 0.48 10^3/uL (1.70-6.50) L 01/18/19 17:53 Absolute Band Neuts 0.21 10^3/uL (0.00-0.70) 01/18/19 17:53 Absolute Lymphocytes 1.67 10^3/uL (1.00-3.00) 01/18/19 17:53 Absolute Monocytes 0.24 10^3/uL (0.30-0.80) L 01/18/19 17:53 Absolute Eosinophils 0.08 10^3/uL (0.03-0.40) 01/18/19 17:53 Absolute Basophils 0.00 10^3/uL (0.02-0.10) L 01/18/19 17:53 Absolute Metamyelocyte 0.00 10^3/mL (0.00-0.00) 01/18/19 17:53 Absolute Myelocytes 0.00 10^3/mL (0.00-0.00) 01/18/19 17:53 Absolute Promyelocytes 0.00 10^3/uL (0.00-0.00) 01/18/19 17:53 Absolute Plasma Cells 0.00 10^3/uL (0.00-0.00) 01/18/19 17:53 Nucleated RBCs 0 /100 WBC (0-0) 01/18/19 17:53 Atypical Lymphocytes 1+ H 01/18/19 17:53 Absolute Blast Cells 0.00 10^3/uL (0.00-0.00) 01/18/19 17:53 Plasma Cells % 0.0 % 01/18/19 17:53 Platelet Estimate ADEQUATE (ADEQ) 01/18/19 17:53 Microcytic Cells 1+ H 01/18/19 17:53 POC Sodium 143 mEq/L (135-145) 01/18/19 17:57 Sodium 137 mEq/L (135-145) 01/18/19 17:53 POC Potassium 3.4 mEq/L (3.3-5.0) 01/18/19 17:57 Potassium 3.6 mEq/L (3.5-5.2) 01/18/19 17:53 POC Chloride 107 mEq/L (97-110) 01/18/19 17:57 Chloride 107 mEq/L (97-110) 01/18/19 17:53 Carbon Dioxide 23 mEq/l (22-31) 01/18/19 17:53 POC Total CO2 21 mEq/L (22-31) L 01/18/19 17:57 Anion Gap 7 mEq/L (6-14) 01/18/19 17:53 POC BUN 4 mg/dL (7-23) L 01/18/19 17:57 BUN 7 mg/dL (7-23) 01/18/19 17:53 Creatinine 0.8 mg/dL (0.6-1.0) 01/18/19 17:53 POC Creatinine 0.8 mg/dL (0.6-1.0) 01/18/19 17:57 Estimated GFR > 60 01/18/19 17:53 Glucose 87 mg/dL (70-100) 01/18/19 17:53 POC Glucose 91 mg/dL (70-100) 01/18/19 17:57 Calcium 8.1 mg/dL (8.5-10.4) L 01/18/19 17:53 Total Bilirubin 0.3 mg/dL (0.1-1.4) 01/18/19 17:53 Conjugated Bilirubin 0.3 mg/dL (0.0-0.5) 01/18/19 17:53 Unconjugated Bilirubin 0.0 mg/dL (0.0-1.1) 01/18/19 17:53 AST 20 IU/L (14-46) 01/18/19 17:53 ALT 28 IU/L (9-52) 01/18/19 17:53 Alkaline Phosphatase 32 IU/L (38-126) L 01/18/19 17:53 Total Protein 5.8 g/dL (6.3-8.2) L 01/18/19 17:53 Albumin 3.4 g/dL (3.5-5.0) L 01/18/19 17:53 Lipase 88 IU/L (23-300) 01/18/19 17:53 Beta HCG, Qual NEGATIVE 01/18/19 17:53 Assessment & Plan Assessment: Abdominal pain (Acute) Diarrhea due to cryptosporidium (Acute) Plan: PHYSICIAN ADDENDUM: Agree w/ above. Saw patient. Discussed w/ Celena Salinas NP. -Erendira Cohn DO
[2019-01-18] MEDS: NS 1,000 ML IV SCH (23:10)
[2019-01-18] MEDS: ESCITALOPRAM OXALATE 10 MG TAB PO SCH (23:36)
[2019-01-18] MEDS: traZODone 50 MG TAB PO SCH (23:37)
[2019-01-18] MEDS: NITAZOXANIDE 500 MG TAB PO SCH (23:37)
[2019-01-19] MEDS: ONDANSETRON DISINTEGRATING 4 MG TAB PO PRN (00:11)
[2019-01-19 05:31] LABS: PLATELET COUNT 201 10^3/uL (150-400)
[2019-01-19] MEDS: DICYCLOMINE 20 MG TAB PO SCH ×4 (06:11→20:38)
[2019-01-19] MEDS: NS 1,000 ML IV SCH (06:13)
[2019-01-19] MEDS: NITAZOXANIDE 500 MG TAB PO SCH ×2 (10:10→20:45)
--- NOTE | 2019-01-19 10:16 | ASMTCASEMG ---
Living Arrangements What is your living Answers: With Other (Not Family) arrangement? Who do you live with? Type Of Residence What kind of residence do Answers: Apartment you live in? Discharge Plan Comments Coordination Status Comments Notes: Patient is a 23yo single female, [employer] student, who is being admitted OBS for Cryptosporidium, abdominal pain/nausea and dehydration. Patient will most likely d/c independently. CM available for any d/c needs that might arise. Date Signed: 01/19/2019 10:15 AM Electronically Signed By:Jammie Monroe LCSW
[2019-01-19] MEDS ORDERED: PROMETHAZINE HCL 25 MG/ML INJ IVP PRN (13:15)
--- NOTE | 2019-01-19 14:09 | HOSPPROG ---
Hospitalist Progress Note Assessment/Plan: 23 y/o female admitted with NV and diarrhea after being started on Avinia for new diagnosis of Cryptosporidium. #Cryptosporidium: Do not have [facility] records indicating this and they are now closed so I am unable to request records. - GI panel PCR pending - Cont Alinia unless GI panel results w/something different -CBC/BMP in AM #Abdominal pain- likely secondary to cryptosporidium and Alinia -Received Bentyl in ED; cont this QID -Anti-emetics Intractable nausea and vomiting- due to medication and infection. Cont IV fluids , antiemetics. #Dehydration -continue intravenous saline -antiemetics Diet: Regular Code: Full VTE ppx: Low risk Dispo: patient not able to take anything orally. Will make inpatient for intractable nausea and vomiting. Subjective: having voluminous watery diarrhea every 20 minutes. also with continued nausea and vomiting. Objective: Vital Signs Temp Pulse Resp BP Pulse Ox 36.9 C 54 L 16 106/61 97 01/19/19 12:01 01/19/19 12:01 01/19/19 12:01 01/19/19 12:01 01/19/19 12:01 Laboratory Results 01/19/19 04:48 01/19/19 04:48 01/18/19 01/19/19 01/20/19 05:59 05:59 05:59 Intake Total 700 868 Output Total 1700 Balance -1000 868 - Physical Exam Constitutional: no apparent distress, appears nourished, not in pain Eyes: PERRL, anicteric sclera, EOMI Ears, Nose, Mouth, Throat: moist mucous membranes, hearing normal, ears appear normal, no oral mucosal ulcers Cardiovascular: regular rate and rhythym, no murmur, rub, or gallop Respiratory: no respiratory distress, no rales or rhonchi, clear to auscultation Gastrointestinal: normoactive bowel sounds, soft, non-tender abdomen, no palpable masses Genitourinary: no bladder fullness, no bladder tenderness, no renal bruits Skin: no rashes or abrasions, no fluctuance, no induration Musculoskeletal: full muscle strength, no muscle tenderness, normal joint ROM Neurologic: AAOx3, sensation intact bilaterally Psychiatric: interacting appropriately, not anxious, not encephalopathic, thought process linear Lymph, Heme, Immunologic: no cervical LAD, no supraclavicular LAD ICD10 Worksheet Patient Problems: Problems Problem Status Onset Abdominal pain Acute Diarrhea due to cryptosporidium Acute
[2019-01-19] MEDS: ESCITALOPRAM OXALATE 10 MG TAB PO SCH (18:37)
[2019-01-19] MEDS: traZODone 50 MG TAB PO SCH (20:38)
[2019-01-19] MEDS ORDERED: ESCITALOPRAM OXALATE 10 MG TAB PO SCH (21:00)
[2019-01-20] MEDS: DICYCLOMINE 20 MG TAB PO SCH ×3 (06:09→15:42)
[2019-01-20] MEDS: NITAZOXANIDE 500 MG TAB PO SCH (10:07)
[2019-01-20 12:21] VITALS: BP 114/68
[2019-01-20] MEDS: ONDANSETRON DISINTEGRATING 4 MG TAB PO PRN (14:29)
[2019-01-20] MEDS ORDERED: HYDROCODONE/APAP 10/325 TAB PO PRN (14:47)
[2019-01-20] MEDS ORDERED: NITAZOXANIDE 500 MG TAB PO ONE ×2 (15:48→17:00)
--- NOTE | 2019-01-20 16:23 | PDDCSUM ---
Discharge Summary Discharge Summary: Discharge diagnosis Cryptosporidium parvum Diarrhea Intractable nausea and vomiting Weakness Patient is a 23-year-old female with no past medical history who presented to the emergency room with intractable nausea vomiting and diarrhea. She had been to the clinic at the [facility] and diagnosed with Cryptosporidium and started on Alinia for this. She continued to have such terrible diarrhea along with nausea and vomiting that she ended up coming to the emergency room. Her linea was continued she was started on IV fluids and antiemetics. She continued to have voluminous diarrhea along with nausea and vomiting. A GI pathogen panel was obtained but returned negative for any pathogens. This was thought to be due to her being started on antibiotics already. By day 2 her nausea vomiting and diarrhea had resolved and she had completed her course of antibiotics. She felt better and wished to be discharged home, so she was discharged home to follow up with primary care physician for further evaluation if needed. Disposition Home independent
== END 2019-01-20 17:26 | disposition home or self-care (01) ==
LOC: F1N 22:10
PROVIDERS: ADMIT Internal Medicine; ATTEND Internal Medicine
DX: A07.3 Isosporiasis (principal); E86.0 Dehydration
CPT/HCPCS: G0378 ×2; 82435-PO; 82565-PO; 82607-90; 82947-PO; 84132-PO; 84295-PO; 84520-PO; 85014-ER; 96374; J2060; J2405; J2550; J3010

== ENCOUNTER 2019-01-24 17:10 | Emergency (ER) | payer BC ==
--- NOTE | 2019-01-24 17:40 | EDPHY ---
H & P Stated Complaint: DVT to LUE Time Seen by Provider: 01/24/19 17:29 HPI/ROS: CHIEF COMPLAINT: Left upper extremity swelling HISTORY OF PRESENT ILLNESS: The patient presents to the ED with complaints of left upper extremity swelling. The patient was recently hospitalized and did have an IV in the extremity. She was treated with IV antibiotics for Cryptosporidium. The patient has no prior history of PE or DVT. The patient does not smoke. She does use a Nuva ring. The patient denies any pleuritic chest pain. She denies dyspnea. She denies additional acute complaints. REVIEW OF SYSTEMS: A comprehensive 10 point review of systems is otherwise negative aside from elements mentioned in the history of present illness. Source: Patient Exam Limitations: No limitations - Personal History LMP (Females 10-55): 22-28 Days Ago Current Tetanus/Diphtheria Vaccine: Yes Current Tetanus Diphtheria and Acellular Pertussis (TDAP): Yes - Medical/Surgical History Hx Asthma: Yes Hx Chronic Respiratory Disease: No Hx Diabetes: No Hx Cardiac Disease: No Hx Renal Disease: No Hx Cirrhosis: No Hx Alcoholism: No Hx HIV/AIDS: No Hx Splenectomy or Spleen Trauma: No Other PMH: asthma, anxiety, R shoulder surg, cryptosporidium, ovarian cyst - Social History Smoking Status: Never smoked - Physical Exam Exam: General Appearance: Alert, no distress Eyes: Pupils equal and round no pallor or injection ENT, Mouth: Mucous membranes moist Respiratory: There are no retractions, lungs are clear to auscultation Cardiovascular: Regular rate and rhythm Gastrointestinal: Abdomen is soft and nontender, no masses, bowel sounds normal Neurological: 5/5 strength noted all 4 extremities Skin: Warm and dry, no rashes Musculoskeletal: Neck is supple nontender Extremities: Mild swelling noted in the left upper extremity, normal arterial pulses, no evidence of compartment syndrome Psychiatric: Patient is oriented X 3, there is no agitation Constitutional: Initial Vital Signs Temperature (C) 37.3 C 01/24/19 17:21 Heart Rate 62 01/24/19 17:21 Respiratory Rate 16 01/24/19 17:21 Blood Pressure 116/71 01/24/19 17:21 O2 Sat (%) 98 01/24/19 17:21 O2 Delivery Mode Room Air Allergies/Adverse Reactions: fluconazole [From Diflucan] Allergy (Unknown, Verified 01/18/19 17:11) ciprofloxacin [From Cipro] Allergy (Verified 01/18/19 17:11) metronidazole [From Flagyl] Allergy (Verified 01/18/19 17:11) pineapple Allergy (Verified 01/18/19 17:11) Home Medications: Medication Instructions Recorded Escitalopram Oxalate [Lexapro] 30 mg PO HS 09/04/16 Cyanocobalamin [Vitamin B12 1,000 mcg IM Q28D 01/18/19 1000MCG/ML (*)] Etonogestrel/Ethinyl Estradiol 1 each VG Q21D 01/18/19 [Nuvaring Vaginal Ring] Nitazoxanide [Alinia] 500 mg PO Q12 01/18/19 Ondansetron HCl 4 mg PO Q6HRS PRN 01/18/19 traZODone [traZODONE 50MG (*)] 50 mg PO HS 01/18/19 Apixaban [Eliquis 30-day Starter 1 kit PO AD #1 kit 01/24/19 Pack (PE/DVT treatment)] Medical Decision Making - Diagnostics Imaging Results: Imaging Impressions Extremity Venous Study 01/24/19 15:05 Impression: 1. Deep venous thrombus involving the mid to distal basilic vein in the left upper arm extending into the antecubital fossa to involve the medial antecubital vein. 2. Nonocclusive thrombus along the wall of the subclavian vein. Findings discussed with Lydia Brito NP at 16:32 hour, 01/24/2019. ED Course/Re-evaluation: I reviewed the results of the patient's ultrasound which demonstrates a DVT in the upper extremity. The patient has no symptoms of PE or DVT. I reviewed her recent laboratory studies from her last hospitalization which demonstrated a negative test, no evidence of anemia and a normal creatinine. The patient will be started on Eliquis in the emergency department. She is advised to take 10 mg twice daily for the next week. She will then transition to 5 mg twice daily. Patient will be referred to Hematology for further evaluation of her DVT and consideration of a hypercoagulable workup. Differential Diagnosis: Differential diagnosis considered includes DVT, cellulitis, abscess Departure - Departure Disposition: Home, Routine, Self-Care Clinical Impression: DVT of upper extremity (deep vein thrombosis) Qualifiers: Chronicity: acute Laterality: left Condition: Good Instructions: Deep Vein Thrombosis (ED) Additional Instructions: 1. Please schedule a follow-up appointment with your primary care provider for a recheck within the week. Please discuss with them a possible referral to Hematology for further evaluation of your blood clot. You have been given contact information of our on-call real estate paralegal. 2. Please start taking Eliquis as prescribed. Take 10 mg twice a day for the next 7 days and then begin taking 5 mg twice daily thereafter. 3. Return to the ED for severe chest pain, difficulty breathing or other concerns. Referrals: LYDIA BRITO MS [employer] [Other] - As per Instructions Abhilash Riggs MD [Medical Doctor] - As per Instructions
[2019-01-24 18:12] VITALS: BP 105/75
== END 2019-01-24 18:11 | disposition home or self-care (01) ==
LOC: EDSTATUS 17:10
DX: I82.622 Acute embolism and thrombosis of deep veins of left upper extremity (principal)